=== PATIENT | female | born 1955 | race Asian ===

== ENCOUNTER → 2016-12-20 | Outpatient (CLI) | payer OTHER | LOC: FIMAGING 08:13 | PROVIDERS: ATTEND Family Medicine | DX: Z12.31 Encounter for screening mammogram for malignant neoplasm of breast (principal) | CPT/HCPCS: G0202 ==

== ENCOUNTER → 2017-04-04 | Outpatient (CLI) | payer OTHER | LOC: FIMAGING 13:57 | PROVIDERS: ATTEND Orthopaedic Surgery | DX: S82.014A Nondisplaced osteochondral fracture of right patella, initial encounter for closed fracture (principal); Z01.818 Encounter for other preprocedural examination; M17.11 Unilateral primary osteoarthritis, right knee; M25.461 Effusion, right knee ==

== ENCOUNTER 2017-05-08 13:23 | Observation (INO) | payer OTHER ==
--- NOTE | 2017-05-08 07:05 | PDHPUP ---
History & Physical Update H&P update statement: This history and physical update is based on an assessment of the patient which was completed after admission or registration (within 24 hours), but prior to the surgery/procedure.
--- NOTE | 2017-05-08 07:06 | PDIAF ---
- Diagnosis Diagnosis: R knee DJD - Medication Management Discharge Medications: Medications to Continue on Transfer Cholecalciferol Vit D3 [Vitamin D3 (*)] 1,000 units PO DAILY 04/19/17 [Last Taken Unknown] Citalopram Hydrobromide [Celexa] 40 mg PO HS 04/19/17 [Last Taken Unknown] Herbals/Supplements -Info Only 1 ea PO DAILY 04/19/17 [Last Taken Unknown] Multivitamins [Multivitamin (*)] 1 each PO DAILY 04/19/17 [Last Taken Unknown] [place]-3 Fatty Acids [Fish Oil 1000 mg (*)] 1,000 mg PO DAILY 04/19/17 [Last Taken Unknown] Discharge Medications: Refer to the Discharge Home Medication list for PRN reason. - Orders Services needed: Physical Therapy Activity/Weight Bearing Restrictions: WBAT, daily dressing changes, ROM as tolerated, may shower without bandage, no soaking or emersion, seek attention for increasing pain, SOB, CP, leg pain or other focal complaint, f/u up at 2 weeks as previously scheduled - Follow Up Care Current Providers and Referrals: Karol Gardner MD [Primary Care Provider] -
[2017-05-08] MEDS ORDERED: LIDOCAINE 1% 2 ML INJ ID PRN (13:53)
[2017-05-08] MEDS ORDERED: ACETAMINOPHEN 325 MG TAB PO ONE (13:53)
[2017-05-08] MEDS ORDERED: ceFAZolin 2 GM/SWFI 2 GM/20 ML SYR IVP ONE (13:53)
[2017-05-08] MEDS ORDERED: FAMOTIDINE 20 MG TAB PO ONE (13:53)
[2017-05-08] MEDS ORDERED: LR 1,000 ML IV ONE (13:53)
[2017-05-08] MEDS ORDERED: NS IV ONE (14:00)
[2017-05-08] MEDS ORDERED: ROPIVACAINE 0.2% 80 MG, EPINEPHrine 0.2 MG, KETOROLAC TROMETHAMINE 30 MG, morphINE 10 M... IU ONE (14:00)
[2017-05-08] MEDS ORDERED: TRANEXAMIC ACID IV ONE (14:00)
[2017-05-08] MEDS ORDERED: MIDAZOLAM 2 MG/2 ML VIAL IVP ONE (17:21)
--- NOTE | 2017-05-08 17:22 | PDANEPAE ---
ANE History of Present Illness R TKA for OA ANE Past Medical History - Cardiovascular History Hx Hypertension: No Hx Arrhythmias: Yes Hx Chest Pain: No Hx Coronary Artery / Peripheral Vascular Disease: No Hx CHF / Valvular Disease: No Hx Palpitations: No Cardiovascular History Comment: "diagnosed with a heart murmur a few years ago but nothing has been said since" - Pulmonary History Hx COPD: No Hx Asthma/Reactive Airway Disease: No Hx Recent Upper Respiratory Infection: No Hx Oxygen in Use at Home: No Hx Sleep Apnea: No Sleep Apnea Screening Result - Last Documented: Negative - Neurologic History Hx Cerebrovascular Accident: No Hx Seizures: No Hx Dementia: No - Endocrine History Hx Diabetes: No - Renal History Hx Renal Disorders: No - Liver History Hx Hepatic Disorders: No - Neurological & Psychiatric Hx Hx Neurological and Psychiatric Disorders: Yes Neurological / Psychiatric History Comment: depression. 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 reflux- diet controlled - Other Health History Other Health History: wears glasses. arthritis to right hand - Chronic Pain History Chronic Pain: Yes (right knee) - Surgical History Prior Surgeries: 06/09/10 lami with Christian. removal of loose cartiledge from knee in 's. cone biopsy in 's ANE Review of Systems Review of Systems: - Exercise capacity METS (RN): 4 METS ANE Patient History - Allergies Allergies/Adverse Reactions: hydrocodone bitartrate [From Vicodin] Allergy (Verified 04/20/17 10:30) sensitive to it- causes nausea - Home Medications Home medications: home medication list seen and reviewed Home Medications: Cholecalciferol Vit D3 [Vitamin D3 (*)] 1,000 units PO DAILY 04/19/17 [Last Taken 05/01/17] Citalopram Hydrobromide [Celexa] 40 mg PO HS 04/19/17 [Last Taken 05/06/17] Herbals/Supplements -Info Only 1 ea PO DAILY 04/19/17 [Last Taken 05/01/17] Multivitamins [Multivitamin (*)] 1 each PO DAILY 04/19/17 [Last Taken 05/01/17] [place]-3 Fatty Acids [Fish Oil 1000 mg (*)] 1,000 mg PO DAILY 04/19/17 [Last Taken 05/01/17] - NPO status NPO Status: no food or drink >8 hours NPO Since - Liquids (Date): 05/08/17 NPO Since - Liquids (Time): 09:00 NPO Since - Solids (Date): 05/07/17 NPO Since - Solids (Time): 23:55 - Anes Hx Anes Hx: no prior problems - Smoking Hx Smoking Status: Former smoker - Alcohol Use Alcohol Use: Rarely - Family Anes Hx Family Anes Hx: none Family Hx Anesthesia Complications: none ANE Labs/Vital Signs - Vital Signs Blood Pressure: 122/75 Heart Rate: 51 Respiratory Rate: 16 O2 Sat (%): 95 Height: 152.4 cm Weight: 54.431 kg ANE Physical Exam - Airway Neck exam: FROM Mallampati Score: Class 2 Mouth exam: normal dental/mouth exam - Pulmonary Pulmonary: no respiratory distress - Cardiovascular Cardiovascular: regular rate and rhythym - ASA Status ASA Status: II ANE Anesthesia Plan Anesthesia Plan: GA with mask, spinal Total IV Anesthesia: Yes
[2017-05-08] MEDS ORDERED: ceFAZolin 1 GM VIAL ONE (17:25)
[2017-05-08] MEDS ORDERED: ceFAZolin 1 GM/5 ML SYR ONE (17:26)
[2017-05-08] MEDS ORDERED: PROPOFOL/EMULSION 500 MG/50 ML BOTTLE IV ONE (17:28)
[2017-05-08] MEDS ORDERED: CALCIUM CHLORIDE 1 GM/10 ML INJ ONE (18:17)
[2017-05-08] MEDS ORDERED: THROMBIN (BOVINE) 5,000 UNIT VIAL TP ONE (18:17)
[2017-05-08] MEDS ORDERED: ROPIVACAINE HCL 150 MG/30 ML INJ ONE (19:06)
[2017-05-08] MEDS ORDERED: clonIDINE 1 MG/10 ML VIAL EP ONE (19:06)
[2017-05-08] MEDS ORDERED: ONDANSETRON 4 MG/2 ML VIAL IVP PRN ×2 (20:11→20:17)
[2017-05-08] MEDS ORDERED: PROMETHAZINE HCL 25 MG/ML INJ IVP PRN (20:11)
[2017-05-08] MEDS ORDERED: LACTULOSE 20 GM/30 ML UDCUP PO PRN (20:11)
[2017-05-08] MEDS ORDERED: ONDANSETRON DISINTEGRATING 4 MG TAB PO PRN (20:11)
[2017-05-08] MEDS ORDERED: METOCLOPRAMIDE 10 MG/2 ML VIAL IVP PRN (20:11)
[2017-05-08] MEDS ORDERED: diphenhydrAMINE 25 MG CAP PO PRN (20:11)
[2017-05-08] MEDS ORDERED: PROMETHAZINE HCL 25 MG SUPPR PR PRN (20:11)
[2017-05-08] MEDS ORDERED: BISACODYL 10 MG SUPP PR PRN (20:11)
[2017-05-08] MEDS ORDERED: DIAZEPAM 5 MG TAB PO PRN (20:11)
[2017-05-08] MEDS ORDERED: oxyCODONE IR 5 MG TAB PO PRN (20:11)
[2017-05-08] MEDS ORDERED: DIPHENOXYLATE/ATROPINE LOMOTIL 1 TAB PO PRN (20:11)
[2017-05-08] MEDS ORDERED: POLYETHYLENE GLYCOL 3350 17 GM PKT PO PRN (20:11)
[2017-05-08] MEDS ORDERED: MAGNESIUM HYDROXIDE 30 ML UDCUP PO PRN (20:11)
[2017-05-08] MEDS ORDERED: TEMAZEPAM 15 MG CAP PO PRN (20:11)
[2017-05-08] MEDS ORDERED: NALOXONE HCL 0.4 MG/ML INJ IVP PRN (20:17)
[2017-05-08] MEDS ORDERED: fentaNYL 100 MCG/2 ML INJ IVP PRN (20:17)
[2017-05-08] MEDS ORDERED: OXYCODONE/APAP 5/325 TAB PO PRN (20:17)
[2017-05-08] MEDS ORDERED: ACETAMINOPHEN 500 MG TAB PO PRN (20:17)
[2017-05-08] MEDS ORDERED: HYDROmorphONE/DILAUDID 1 MG/ML INJ IVP PRN (20:17)
[2017-05-08] MEDS ORDERED: LR 1,000 ML IV SCH (20:30)
[2017-05-08] MEDS ORDERED: CITALOPRAM 20 MG TAB PO SCH (21:00)
--- NOTE | 2017-05-08 21:40 | POSTANESTH ---
Post Anesthetic Evaluation Cardiovascular Status: Normal, Stable, Similar to Pre-Op Cond Respiratory Status: Normal, Stable, Similar to Pre-op Cond. Level of Consciousness/Mental Status: Can Participate in Eval, Alert and Oriented Pain Control: Adequate, Prn Tx Ordered Nausea/Vomiting Control: Adequate, Prn Tx Ordered Complications Possibly Related to Anesthesia: None Noted
[2017-05-08] MEDS: ceFAZolin 2 GM/DEXTROSE 100 ML IV SCH (22:48)
[2017-05-08] MEDS: ACETAMINOPHEN 325 MG TAB PO SCH (22:53)
[2017-05-08] MEDS: TRANEXAMIC ACID 650 MG TAB PO SCH (22:53)
[2017-05-08] MEDS: ASPIRIN 325 MG TAB PO SCH (22:54)
[2017-05-08] MEDS: SENNOSIDES/DOCUSATE SODIUM TAB PO SCH (22:54)
[2017-05-08] MEDS: FAMOTIDINE 20 MG TAB PO SCH (22:54)
[2017-05-09 03:21] VITALS: TEMP 97.7
[2017-05-09] MEDS: TRANEXAMIC ACID 650 MG TAB PO SCH (05:58)
[2017-05-09] MEDS: ceFAZolin 2 GM/DEXTROSE 100 ML IV SCH (05:58)
[2017-05-09] MEDS: ACETAMINOPHEN 325 MG TAB PO SCH (05:58)
[2017-05-09 07:50] VITALS: BP 93/59; PULSE 44; RESP 16; O2SAT 97
--- NOTE | 2017-05-09 08:16 | PDIAF ---
- Diagnosis Diagnosis: R knee DJD Code Status: Full Code - Medication Management Discharge Medications: Medications to Continue on Transfer Cholecalciferol Vit D3 [Vitamin D3 (*)] 1,000 units PO DAILY 04/19/17 [Last Taken 05/01/17] Citalopram Hydrobromide [Celexa] 40 mg PO HS 04/19/17 [Last Taken 05/06/17] Herbals/Supplements -Info Only 1 ea PO DAILY 04/19/17 [Last Taken 05/01/17] Multivitamins [Multivitamin (*)] 1 each PO DAILY 04/19/17 [Last Taken 05/01/17] [place]-3 Fatty Acids [Fish Oil 1000 mg (*)] 1,000 mg PO DAILY 04/19/17 [Last Taken 05/01/17] Aspirin [Aspirin 325 mg (*)] 325 mg PO DAILY tab 05/09/17 [Last Taken Unknown] oxyCODONE IR [Oxycodone Ir (*)] 5 - 10 mg PO Q3HRS PRN #90 tab 05/09/17 [Last Taken Unknown] Discharge Medications: Refer to the Discharge Home Medication list for PRN reason. - Orders Services needed: Physical Therapy Diet Recommendation: no restrictions on diet Activity/Weight Bearing Restrictions: WBAT, daily dressing changes, ROM as tolerated, may shower without bandage, no soaking or emersion, seek attention for increasing pain, SOB, CP, leg pain or other focal complaint, f/u up at 2 weeks as previously scheduled - Follow Up Care Current Providers and Referrals: Karol Gardner MD [Medical Doctor] -
--- NOTE | 2017-05-09 08:18 | SOAPPROG ---
SOAP Progress Note Assessment/Plan: Assessment: s/p right tka Plan:stable d/c after cleared by pt bradycardia appears physiological and baseline, no bp changes no symptoms dvt precautions reviewed 05/09/17 08:16 Subjective: no symptoms slept overnight mild pain only Objective: Vital Signs Temp Pulse Resp BP Pulse Ox 36.5 C 44 L 16 93/59 L 97 05/09/17 07:48 05/09/17 07:48 05/09/17 07:48 05/09/17 07:48 05/09/17 07:48 Laboratory Results 05/09/17 05:23 05/08/17 05/09/17 05/10/17 05:59 05:59 05:59 Intake Total 2021 Output Total 750 Balance 1272 dressing intact intact pf,df,ehl toes warm and pink neg homans bilaterally xrays stable alignment no fx or lucency ICD10 Worksheet Patient Problems: Problems Problem Status Onset Arthritis of knee, right Acute - ICD10 Problem Qualifiers (1) Arthritis of knee, right
[2017-05-09] MEDS: FAMOTIDINE 20 MG TAB PO SCH (08:51)
[2017-05-09] MEDS: ASPIRIN 325 MG TAB PO SCH (08:51)
[2017-05-09] MEDS: SENNOSIDES/DOCUSATE SODIUM TAB PO SCH (08:51)
--- NOTE | 2017-05-09 12:22 | ASDISCHSUM ---
Discharge Information Plan Status:Home with Home Health Medically Cleared to Leave: Discharge Date:05/09/2017 11:26 AM CM D/C Disposition:Home Health Service ADT D/C Disposition:Home Health Service Projected Discharge Date:05/10/2017 11:00 AM Transportation at D/C:Family Discharge Delay Reason: Follow-Up Date:05/10/2017 11:00 AM Discharge Slot: Final Diagnosis: Placement Information Referral Type:*Home Health Care Services Referral ID:[id number] Provider Name:[facility] Address 1:[address] Address 2: City:[place] Selection Factors: State:[place] Patient Contact Information Contact Name:JONATHON Relationship: Address:[address] City:[place] Alternate Phone: State/Zip Code:[place] [address] Email: Financial Information Financial Class:HMO and PPO Plans Primary Plan Desc:ISHAN PPO [employer] Primary Plan Number:[id number] Secondary Plan Desc: Secondary Plan Number: Assessment Information BC CM Progress Note CM Note CM Note Notes: Pt medically stable for d/c with [facility] and family support. Address/phone verified. Orders to be obtained via [employer]. Date Signed: 05/09/2017 12:21 PM Electronically Signed By:COLT Mcghee Intervention Information Intervention Type:*Incorrect Registration Date of Service:05/08/2017 07:01 AM Patient Type:Inpatient Staff Member:RICH [place] Kerry Hours: Discipline: Severity: Comment:
--- NOTE | 2017-05-09 12:22 | ASMTCMCOM ---
CM Note CM Note Notes: Pt medically stable for d/c with [facility] and family support. Address/phone verified. Orders to be obtained via [email or web address]. Date Signed: 05/09/2017 12:21 PM Electronically Signed By:COLT Mcghee
== END 2017-05-09 11:26 | disposition home health service (06) ==
LOC: F3N 13:47 → INTOOBSV 13:47 → F3N 21:50
PROVIDERS: ADMIT Orthopaedic Surgery; ATTEND Orthopaedic Surgery
PROC: 0SRC0JZ Replacement of Right Knee Joint with Synthetic Substitute, Open Approach (ICD-10-PCS; principal; 2017-05-08 15:45)
DX: M17.11 Unilateral primary osteoarthritis, right knee (principal)
CPT/HCPCS: 27447; 73560; 97116; 97161; 97165; 97535; G0378; J0171; J0690; J0735; J1885; J2250; J2704; J2795

== ENCOUNTER → 2017-06-16 | Outpatient (CLI) | payer OTHER | LOC: BMCLAB 07:55 | PROVIDERS: ATTEND Physician Assistant | DX: Z47.1 Aftercare following joint replacement surgery (principal); Z96.651 Presence of right artificial knee joint ==

== ENCOUNTER → 2017-08-02 | Outpatient (CLI) | payer OTHER | LOC: BMCIMAGING 11:07 | PROVIDERS: ATTEND Physician Assistant | DX: Z96.651 Presence of right artificial knee joint (principal) ==

== ENCOUNTER → 2017-10-09 | Outpatient (CLI) | payer OTHER | LOC: BMCIMAGING 09:59 | PROVIDERS: ATTEND Physician Assistant | DX: M25.562 Pain in left knee (principal); M17.12 Unilateral primary osteoarthritis, left knee ==

== ENCOUNTER → 2017-12-28 | Outpatient (CLI) | payer OTHER | LOC: FIMAGING 09:18 | PROVIDERS: ATTEND Family Medicine | DX: Z12.31 Encounter for screening mammogram for malignant neoplasm of breast (principal) ==